=== PATIENT | female | born 1990 | race Caucasian/White ===

== ENCOUNTER 2021-08-24 13:13 | Emergency (ER) | payer SELFPAY ==
[2021-08-24] MEDS ORDERED: HYDROcodone/Acetaminophen 5/325 mg Tablet ONE (13:40)
[2021-08-24] MEDS ORDERED: Ibuprofen 800 MG TAB ONE (13:40)
[2021-08-24] MEDS ORDERED: TETANUS, DIPHTHERIA TOX,ADULT (TDVAX) 0.5 ML VIAL IM ONE (13:40)
== END 2021-08-24 14:06 | disposition home or self-care (01) ==
LOC: BURERS 13:13
DX: S90.32XA Contusion of left foot, initial encounter (principal); S90.02XA Contusion of left ankle, initial encounter; W55.29XA Other contact with cow, initial encounter
CPT/HCPCS: 90471; 90714